=== PATIENT | female | born 1975 | race Caucasian/White ===

== ENCOUNTER 2017-11-13 12:05 | Emergency (ER) | payer OTHER ==
[~2017-11-13] VITALS: Ht 162.6 cm; Wt 68.2 kg
[~2017-11-13 12:05] MED LIST: CLON-570 PO; LORA1TAB3 PO
[2017-11-13] MEDS ORDERED: ALPR-342 PO (12:23)
[2017-11-13] MEDS ORDERED: ZOLP10TA7 PO (12:23)
[2017-11-13] MEDS ORDERED: CLON.2 PO (12:23)
[2017-11-13] MEDS ORDERED: TRAZ-147 PO (12:23)
[2017-11-13 13:02] VITALS: BP 101/58
== END 2017-11-13 14:04 | disposition home or self-care (01) ==
LOC: EMS 12:07
DX: F41.9 Anxiety disorder, unspecified (principal); Z76.0 Encounter for issue of repeat prescription; F32.9 Major depressive disorder, single episode, unspecified; Z59.0 Homelessness; Z87.442 Personal history of urinary calculi; Z88.0 Allergy status to penicillin
CPT/HCPCS: 99283

== ENCOUNTER 2018-11-30 15:37 | Emergency (ER) | payer OTHER ==
[~2018-11-30] VITALS: Ht 162.6 cm; Wt 76.4 kg
[~2018-11-30 15:37] MED LIST changes: +ALPR-342 PO; -CLON-570 PO; +CLON.2 PO; -LORA1TAB3 PO; +TRAZ-220 PO; +ZOLP10TA7 PO
[2018-11-30] MEDS ORDERED: ALPRAZolam 1 MG TABLET PO ONE (17:15)
[2018-11-30] MEDS ORDERED: ALPRAZolam 0.25 MG TABLET PO ONE (17:15)
[2018-11-30 17:35] VITALS: BP 132/87
== END 2018-11-30 17:37 | disposition home or self-care (01) ==
LOC: EMS 15:37
DX: F41.9 Anxiety disorder, unspecified (principal); F32.9 Major depressive disorder, single episode, unspecified; Z59.0 Homelessness; Z88.0 Allergy status to penicillin

== ENCOUNTER 2019-03-17 09:33 | Inpatient (IN) | payer MEDICARE ==
[~2019-03-17] VITALS: Ht 165.1 cm; Wt 74.8 kg
[2019-03-17 16:29] VITALS: BP 145/67
[2019-03-17 17:20] VITALS: BP 119/90
[2019-03-17] MEDS ORDERED: PNEUMOCOCCAL VACCINE POLYVALENT 0.5 ML VIAL [PPSV23] IM ONE (20:30)
[2019-03-17] MEDS: LORazepam 2 MG TABLET PO PRN (21:50)
[2019-03-18 06:23] VITALS: BP 106/82
[2019-03-18 08:15] LABS: BASOPHILS % (AUTO) 0.8 % (0.0-2.0); EOSINOPHILS % (AUTO) 1.7 % (1.0-6.0); HEMATOCRIT 41.3 % (36-46); HEMOGLOBIN 13.8 g/dL (12.0-16.0); LYMPHOCYTES # (AUTO) 2.8 K/uL (1.0-4.8); LYMPHOCYTES % (AUTO) 33.9 % (22.0-44.0); MEAN CORPUSCULAR HGB CONC 33.5 G/dL (31.0-37.0); MEAN CORPUSCULAR VOLUME 93 fL (80-100); MONOCYTES # (AUTO) 0.6 K/uL (0.1-1.0); MONOCYTES % (AUTO) 7.4 % (2.0-9.0); NEUTROPHILS # (AUTO) 4.6 K/uL (1.8-7.7); NEUTROPHILS % (AUTO) 56.2 % (40.0-70.0); PLATELET COUNT (AUTO) 290 K/uL (150-450); RED BLOOD CELL COUNT(AUTO) 4.46 MIL/uL (4.00-5.20); RED CELL DISTRIBUTION WIDTH 13.1 % (11.5-14.5)
[2019-03-18 08:26] VITALS: BP 99/72
[2019-03-18 08:51] LABS: ALANINE AMINOTRANSFERASE 22 U/L (12-78); ALBUMIN 3.6 g/dL (3.4-5.0); ALKALINE PHOSPHATASE 64 U/L (46-116); ANION GAP 12 mmol/L (8-16); ASPARTATE AMINOTRANSFERASE 21 U/L (15-37); BILIRUBIN,TOTAL 0.8 mg/dL (0.1-1.0); CALCIUM, TOTAL 9.1 mg/dL (8.8-10.5); CARBON DIOXIDE 23 mmol/L (22-29); CHLORIDE 105 mmol/L (98-107); CHOL/HDL RATIO 3.5 (3.9-5.7); CHOLESTEROL 165 mg/dL (131-200); FREE T4 (FREE THYROXINE) 1.23 ng/dL (0.76-1.46); GLOMERULAR FILTR. RATE CALC > 60 mL/min (>60); GLUCOSE,RANDOM 79 mg/dL (70-110); HDL CHOLESTEROL 47 mg/dL (40-60); LDL CHOL (CALC.) 82 mg/dL (0-130); POTASSIUM 3.6 mmol/L (3.5-5.1); SODIUM SERUM 140 mmol/L (136-145); THYROID STIMULATING HORMONE 4.56 uIU/mL (0.36-3.74); TOTAL PROTEIN, SERUM 6.6 g/dL (6.4-8.2); TRIGLYCERIDES 178 mg/dL (15-150); UREA NITROGEN, BLOOD 14 mg/dL (7-18)
[2019-03-18] MEDS: LORazepam 2 MG TABLET PO PRN ×2 (11:05→16:16)
[2019-03-18 16:17] VITALS: BP 125/92
[2019-03-18] MEDS: TraZODone HCL 150 MG TABLET PO SCH (20:03)
[2019-03-19 00:01] VITALS: BP 124/82
[2019-03-19] MEDS: LORazepam 2 MG TABLET PO PRN ×4 (00:07→16:32)
[2019-03-19] MEDS: ZOLPIDEM TARTRATE 10 MG TABLET PO PRN ×2 (00:07→20:10)
[2019-03-19 08:14] VITALS: BP 115/70
[2019-03-19 16:06] VITALS: BP 124/69
[2019-03-19] MEDS: HALOPERIDOL 5 MG TABLET PO PRN (16:32)
[2019-03-19] MEDS: TraZODone HCL 150 MG TABLET PO SCH (20:05)
[2019-03-20] MEDS: LORazepam 2 MG TABLET PO PRN ×3 (05:06→16:10)
[2019-03-20 05:32] VITALS: BP 116/82
[2019-03-20 08:54] VITALS: BP 119/75
[2019-03-20] MEDS: HALOPERIDOL 5 MG TABLET PO PRN (14:48)
[2019-03-20 16:10] VITALS: BP 122/87
[2019-03-20] MEDS: TraZODone HCL 150 MG TABLET PO SCH (20:21)
[2019-03-20] MEDS: ZOLPIDEM TARTRATE 10 MG TABLET PO PRN (20:52)
[2019-03-21 01:01] VITALS: BP 120/81
[2019-03-21] MEDS: LORazepam 2 MG TABLET PO PRN ×2 (01:01→08:23)
[2019-03-21 07:56] LABS: AMPHET/METH SCREEN,URINE NEGATIVE (NEGATIVE); BARBITURATE SCREEN, URINE NEGATIVE (NEGATIVE); BENZODIAZEPINES SCREEN,URINE POSITIVE (NEGATIVE); CANNABINOID SCREEN,URINE NEGATIVE (NEGATIVE); COCAINE SCREEN,URINE NEGATIVE (NEGATIVE); METHADONE SCREEN, URINE NEGATIVE (NEGATIVE); OPIATE SCREEN,URINE NEGATIVE (NEGATIVE)
[2019-03-21 07:58] LABS: PHENCYCLIDINE SCREEN,URINE NEGATIVE (NEGATIVE)
[2019-03-21 08:17] LABS: BILIRUBIN,URINE NEGATIVE (NEGATIVE); GLUCOSE, URINE (UA) NEGATIVE (NEGATIVE); KETONES,URINE TRACE mg/dL (NEGATIVE); LEUKOCYTE ESTERASE ,URINE NEGATIVE (NEGATIVE); NITRATE,URINE NEGATIVE (NEGATIVE); OCCULT BLOOD,URINE NEGATIVE (NEGATIVE); PROTEIN,URINE NEGATIVE (NEGATIVE)
[2019-03-21 08:35] LABS: APPEARANCE,URINE CLEAR (CLEAR)
[2019-03-21 08:45] VITALS: BP 125/84
== END 2019-03-21 15:39 | disposition home or self-care (01) | DRG 885 ==
LOC: B2X 16:10
PROVIDERS: ADMIT Psychiatry & Neurology Child & Adolescent Psychiatry; ATTEND Psychiatry & Neurology Child & Adolescent Psychiatry
DX: F31.2 Bipolar disorder, current episode manic severe with psychotic features (principal); R45.851 Suicidal ideations; E03.9 Hypothyroidism, unspecified; F41.9 Anxiety disorder, unspecified; G47.00 Insomnia, unspecified; K59.00 Constipation, unspecified; F19.10 Other psychoactive substance abuse, uncomplicated
CPT/HCPCS: 80307; 84439; 84443; 87081

== ENCOUNTER 2019-06-15 12:53 | Emergency (ER) | payer MEDICARE ==
[~2019-06-15] VITALS: Ht 162.6 cm; Wt 72.7 kg
[~2019-06-15 12:53] MED LIST changes: -ALPR-342 PO; -CLON.2 PO; -ZOLP10TA7 PO
[2019-06-15 13:23] VITALS: BP 143/70
[2019-06-15] MEDS ORDERED: TRAZ150 PO (14:15)
[2019-06-15] MEDS ORDERED: HydrOXYzine PAMOATE 50 MG CAPSULE PO ONE (14:15)
[2019-06-15] MEDS ORDERED: ALPR2TAB97 PO (22:48)
[2019-06-15] MEDS ORDERED: ZOLP5TAB2 PO (22:48)
== END 2019-06-15 15:13 | disposition home or self-care (01) ==
LOC: EMS 12:55
DX: F41.9 Anxiety disorder, unspecified (principal); F32.9 Major depressive disorder, single episode, unspecified; Z59.0 Homelessness; Z88.0 Allergy status to penicillin; Z91.040 Latex allergy status

== ENCOUNTER 2019-06-15 22:02 | Emergency (ER) | payer MEDICARE, MEDICAID ==
[~2019-06-15] VITALS: Ht 167.6 cm; Wt 64.0 kg
[~2019-06-15 22:02] MED LIST changes: +TRAZ150 PO
[2019-06-15] MEDS ORDERED: ALPR2TAB97 PO (22:48)
[2019-06-15] MEDS ORDERED: ZOLP5TAB2 PO (22:48)
[2019-06-15] MEDS ORDERED: SODIUM CHLORIDE 0.9% 1,000 ML IV ONE (23:45)
[2019-06-15] MEDS ORDERED: ONDANSETRON HCL 4 MG/2 ML VIAL IVP ONE (23:45)
[2019-06-15] MEDS ORDERED: LORazepam 2 MG TABLET PO ONE (23:45)
[2019-06-16 00:38] LABS: BASOPHILS % (AUTO) 0.5 % (0.0-2.0); EOSINOPHILS % (AUTO) 0 % (1.0-6.0); HEMATOCRIT 45.7 % (36-46); HEMOGLOBIN 15.1 g/dL (12.0-16.0); LYMPHOCYTES # (AUTO) 1.5 K/uL (1.0-4.8); MEAN CORPUSCULAR HEMOGLOBIN 30.6 pg (26.0-34.0); MEAN CORPUSCULAR HGB CONC 33.1 G/dL (31.0-37.0); MEAN CORPUSCULAR VOLUME 92 fL (80-100); MONOCYTES # (AUTO) 1.2 K/uL (0.1-1.0); MONOCYTES % (AUTO) 7.2 % (2.0-9.0); NEUTROPHILS % (AUTO) 83.3 % (40.0-70.0); PLATELET COUNT (AUTO) 363 K/uL (150-450); RED BLOOD CELL COUNT(AUTO) 4.95 MIL/uL (4.00-5.20); RED CELL DISTRIBUTION WIDTH 13.1 % (11.5-14.5)
[2019-06-16 00:54] LABS: ANION GAP 13 mmol/L (8-16); CALCIUM, TOTAL 9.7 mg/dL (8.8-10.5); CARBON DIOXIDE 23 mmol/L (22-29); CHLORIDE 102 mmol/L (98-107); CREATININE 1.03 mg/dL (0.60-1.30); GLOMERULAR FILTR. RATE CALC 59 mL/min (>60); GLUCOSE,RANDOM 105 mg/dL (70-110); POTASSIUM 3.7 mmol/L (3.5-5.1); SODIUM SERUM 138 mmol/L (136-145); UREA NITROGEN, BLOOD 10 mg/dL (7-18)
[2019-06-16 01:02] LABS: LACTIC ACID 1.9 mmol/L (0.4-2.0)
[2019-06-16 01:20] LABS: ALANINE AMINOTRANSFERASE 20 U/L (12-78); ALBUMIN 4.9 g/dL (3.4-5.0); ALKALINE PHOSPHATASE 76 U/L (46-116); ASPARTATE AMINOTRANSFERASE 20 U/L (15-37); BILIRUBIN,TOTAL 0.6 mg/dL (0.1-1.0); CREATINE KINASE, TOTAL ONLY 449 U/L (26-192); HCG,QUANTITATIVE < 1 mIU/mL (0-6); TOTAL PROTEIN, SERUM 7.6 g/dL (6.4-8.2)
[2019-06-16 03:50] LABS: APPEARANCE,URINE CLOUDY (CLEAR); BILIRUBIN,URINE NEGATIVE (NEGATIVE); GLUCOSE, URINE (UA) NEGATIVE (NEGATIVE); KETONES,URINE 40 mg/dL (NEGATIVE); LEUKOCYTE ESTERASE ,URINE NEGATIVE (NEGATIVE); NITRATE,URINE POSITIVE (NEGATIVE); OCCULT BLOOD,URINE SMALL (NEGATIVE); PH,URINE 5.5 (5.0-8.0); PROTEIN,URINE POS 1+ (NEGATIVE); UROBILINOGEN,URINE 0.2 mg/dL (<=1.0)
[2019-06-16 03:54] LABS: AMPHET/METH SCREEN,URINE NEGATIVE (NEGATIVE); BARBITURATE SCREEN, URINE NEGATIVE (NEGATIVE); BENZODIAZEPINES SCREEN,URINE NEGATIVE (NEGATIVE); CANNABINOID SCREEN,URINE NEGATIVE (NEGATIVE); COCAINE SCREEN,URINE NEGATIVE (NEGATIVE); METHADONE SCREEN, URINE NEGATIVE (NEGATIVE); OPIATE SCREEN,URINE NEGATIVE (NEGATIVE)
[2019-06-16 04:00] LABS: PHENCYCLIDINE SCREEN,URINE NEGATIVE (NEGATIVE)
[2019-06-16 04:10] LABS: BACTERIA,URINE Many /HPF (None Seen)
[2019-06-16 04:11] LABS: SQUAMOUS EPITHELIAL CELL,UR Many /LPF (None Seen)
[2019-06-16 05:00] VITALS: BP 102/66
== END 2019-06-16 05:23 | disposition home or self-care (01) ==
LOC: EMS 22:03
DX: S00.212A Abrasion of left eyelid and periocular area, initial encounter (principal); R56.9 Unspecified convulsions; F13.20 Sedative, hypnotic or anxiolytic dependence, uncomplicated; F41.9 Anxiety disorder, unspecified; F32.9 Major depressive disorder, single episode, unspecified; Z59.0 Homelessness; Z88.0 Allergy status to penicillin; Z91.040 Latex allergy status; W19.XXXA Unspecified fall, initial encounter; Y93.89 Activity, other specified; Y92.89 Other specified places as the place of occurrence of the external cause; Y99.8 Other external cause status
CPT/HCPCS: 36415; 70450; 80053; 80307; 81001; 82550; 83605; 84484; 84702; 85025; 87077; 87086; 87186; 93005; 96374; 99284; J2405; J7030